=== PATIENT | female | born 1970 | race Caucasian/White ===

== ENCOUNTER 2022-05-18 13:27 | Emergency (ER) | payer BC ==
[~2022-05-18] VITALS: Ht 154.9 cm; Wt 61.2 kg
[2022-05-18 13:33] VITALS: BP 110/66
--- NOTE | 2022-05-18 14:40 | NUR ---
51 y/o female [place] from work, pt presents to ed with tonic clonic seizure today around 1300, pt states she has hx of seizures for the pst 2 years, last seizure was 6 mo ago. pt denies sob, cp, fevers, cough, n/v/d, head trauma, oral trauma or incontinence. pt has returned to baseline, a&ox4, ambulates with steady gait, prosthesis on right leg. pmh: seizures nka med: denies
--- NOTE | 2022-05-18 15:10 | NUR ---
Patient discharged with v/s stable. Written and verbal after care instructions given and explained. Patient verbalized understanding. Ambulatory with steady gait. All questions addressed prior to discharge. Advised to follow up with PMD.
[2022-05-18 15:28] VITALS: BP 110/66
== END 2022-05-18 15:10 | disposition home or self-care (01) ==
LOC: MED 13:27
DX: R56.9 Unspecified convulsions (principal); Z98.890 Other specified postprocedural states
CPT/HCPCS: 99283

== ENCOUNTER 2023-11-04 16:47 | Emergency (ER) | payer BC, OTHER ==
[~2023-11-04] VITALS: Ht 157.5 cm; Wt 61.2 kg
[2023-11-04 17:00] VITALS: BP 121/76; PULSE 78; RESP 16; TEMP 98.2; O2SAT 97
[2023-11-04 18:11] LABS: BASOPHILS % (AUTO) 0.1 % (0.0-2.0); EOSINOPHILS # (AUTO) 0.1 K/uL (0-0.4); EOSINOPHILS % (AUTO) 0.6 % (0.0-4.0); HEMATOCRIT 37.5 % (36-48); HEMOGLOBIN 12.8 g/dL (12.0-16.0); LYMPHOCYTES # (AUTO) 1.9 K/uL (2.5-16.5); LYMPHOCYTES % (AUTO) 15.2 % (20.5-51.1); MEAN CORPUSCULAR HEMOGLOBIN 31 pg (27-31); MEAN CORPUSCULAR HGB CONC 34 g/dL (33-37); MEAN CORPUSCULAR VOLUME 90.8 fL (80-94); MONOCYTES # (AUTO) 0.7 K/uL (0.8-1.0); MONOCYTES % (AUTO) 5.8 % (1.7-9.3); NEUTROPHILS # (AUTO) 9.9 K/uL (1.8-7.7); NEUTROPHILS % (AUTO) 78.3 % (42.2-75.2); PLATELET COUNT (AUTO) 356 K/uL (140-450); RED BLOOD CELL COUNT(AUTO) 4.13 MIL/uL (4.20-5.40); RED CELL DISTRIBUTION WIDTH 13.6 % (11.6-13.7); WHITE BLOOD COUNT (AUTO) 12.6 K/uL (4.8-10.8)
[2023-11-04 18:22] LABS: ANION GAP 11.3 (8-16); CALCIUM 9.1 mg/dL (8.5-10.1); CARBON DIOXIDE 29.2 mmol/L (21-32); CREATININE 0.8 mg/dL (0.6-1.3); POTASSIUM 3.5 mmol/L (3.5-5.1)
[2023-11-04 18:30] LABS: INR 1.03 (0.8-1.2); PARTIAL THROMBOPLASTIN TIME 22.7 secs (22-35.6); PROTHROMBIN TIME 10.8 secs (10.8-13.4)
[2023-11-04 18:54] VITALS: TEMP 98.2
[2023-11-04 19:20] LABS: ALANINE AMINOTRANSFERASE 20 U/L (12-78); ALKALINE PHOSPHATASE 71 U/L (50-136); ASPARTATE AMINOTRANSFERASE 14 U/L (15-37); BILIRUBIN,DIRECT 0.1 mg/dL (0.0-0.3); TOTAL BILIRUBIN 0.1 mg/dL (0.0-1.0)
[2023-11-04] MEDS ORDERED: levETIRAcetam 100 MG/ML VIAL IV ONE ×2 (20:35→20:46)
[2023-11-04] MEDS: levETIRAcetam 500 MG in NACL 0.9% 100 ML IV STA (20:43)
[2023-11-04] MEDS: levETIRAcetam 1,000 MG in NACL 0.9% 100 ML IV ONE (20:54)
[2023-11-04 21:02] LABS: APPEARANCE,URINE SL CLOUDY (CLEAR); BILIRUBIN,URINE NEGATIVE (NEGATIVE); BLOOD, URINE NEGATIVE (NEGATIVE); COLOR,URINE YELLOW (YELLOW); LEUKOCYTE ESTERASE ,URINE 1+ (NEGATIVE); NITRITE, URINE NEGATIVE (NEGATIVE); PROTEIN,URINE 1+ (NEGATIVE); UGLUCOSE NEGATIVE (NEGATIVE); UROBILINOGEN,URINE 0.2 EU/dL (0.2 - 1)
[2023-11-04 21:17] LABS: BACTERIA,URINE 10-30 (MOD) /HPF (None Seen); CALCIUM OXALATE CRYSTALS,UR 0-10 /HPF (None Seen); RBC,URINE 0-5 /HPF (0-5); SQUAMOUS EPITHELIAL CELL,UR 0-3 (FEW) /LPF (0-3 (FEW))
[2023-11-04] MEDS ORDERED: LEVE500T9 PO (21:51)
[2023-11-04 22:26] VITALS: BP 105/67; PULSE 79; RESP 12; O2SAT 95
== END 2023-11-04 22:27 | disposition home or self-care (01) ==
LOC: MED 16:47
DX: S00.512A Abrasion of oral cavity, initial encounter (principal); R56.9 Unspecified convulsions; Z79.899 Other long term (current) drug therapy; X58.XXXA Exposure to other specified factors, initial encounter; Y92.89 Other specified places as the place of occurrence of the external cause; Y93.89 Activity, other specified; Y99.8 Other external cause status
CPT/HCPCS: 36415; 70450; 71045; 80048; 80076; 81001; 83880; 84484; 85025; 85610; 85730; 87086; 93005; 96365; 96376; 99285; J1953